=== PATIENT | female | born 1935 | race Caucasian/White ===

== ENCOUNTER 2019-03-16 16:10 | Emergency (ER) | payer MEDICARE, OTHER ==
[2019-03-16] MEDS ORDERED: ONDANSETRON HCL IV 4 MG/2 ML VIAL IV ONE (16:16)
[2019-03-16] MEDS ORDERED: 0.9 % SODIUM CHLORIDE 1,000 ML BAG IV ONE ×2 (16:16→17:15)
--- NOTE | 2019-03-16 16:22 | Emergency Department Record ---
History of Present Illness - General Chief complaint: Nausea, Vomiting, Diarrhea Stated complaint: N/V Time Seen by Provider: 03/16/19 16:11 Source: Patient Mode of Arrival: Ambulatory Limitations: No limitations - History of Present Illness Initial comments: The patient is here due to a 15 hour hx of frequent nausea, vomiting and then loose watery stools. She did develop some crampy abdominal pain after the vomiting. There has been no fever, chills, blood in the stool or vomit, Cp, SOB, or back pain. The patient has had no recent travel and has not been on any antibiotics. Her only abdominal surgery is a gallbladder removal. MD complaint: Diarrhea, Nausea, Vomiting Onset/Timin -: Hour(s) - Related Data Previous Rx's Medication Instructions Recorded Ondansetron [Zofran Odt] 4 mg SL .Q4-6H PRN #12 tab.rapdis 03/16/19 Allergies Allergy/AdvReac Type Severity Reaction Status Date / Time codeine Allergy HYPERSENSIT Verified 03/16/19 16:23 IVITY Review of Systems Constitutional: Denies: Chills, Fever Eyes: Denies: Eye discharge ENT: Denies: Congestion Respiratory: Denies: Cough, Dyspnea Cardiovascular: Denies: Arrhythmia, Chest pain Endocrine: Denies: Fatigue Gastrointestinal: Reports: Abdominal pain, Diarrhea, Nausea, Vomiting Genitourinary: Denies: Dysuria Musculoskeletal: Denies: Arthralgia Skin: Denies: Bruising Past Medical History - SOCIAL HISTORY Smoking Status: Never smoker Alcohol Use: None Drug Use: None - RESPIRATORY Hx Respiratory Disorders: No - CARDIOVASCULAR Hx Cardio Disorders: No - GI Hx GI Disorders: No Physical Exam - General General Appearance: Alert, Oriented x3, Cooperative, No acute distress - Head Head exam: Atraumatic, Normocephalic, Normal inspection - Eye Eye exam: Normal appearance, PERRL - ENT Throat exam: Normal inspection. negative: Tonsillar erythema, Tonsillar exudate - Neck Neck exam: Normal inspection, Full ROM. negative: Tenderness - Respiratory Respiratory exam: Normal lung sounds bilaterally. negative: Respiratory distress - Cardiovascular Cardiovascular Exam: Regular rate, Normal rhythm, Normal heart sounds - GI/Abdominal GI/Abdominal exam: Soft, Normal bowel sounds. negative: Rebound, Rigid, Tenderness - Extremities Extremities exam: Normal inspection, Full ROM, Normal capillary refill. negative: Tenderness - Neurological Neurological exam: Alert, Normal gait. negative: Abnormal gait, Motor sensory deficit - Psychiatric Psychiatric exam: negative: Anxious Course - Reevaluation(s) Reevaluation #1: The patient is doing better at this time. She denies any significant pain or nausea but has mild tenderness on exam over the mid abdomen. Because of that new finding we will order an abdominal CT. 03/16/19 17:15 Reevaluation #2: The patient is doing very well at this time and denies any AP, nausea or vomiting. On exam her abdomen is very soft with no tenderness on palpation. The patient's repeat temp is 98.4 orally. I do feel the patient most likely has a viral enteritis or possibly food poisoning. Since she is doing so much better we will discharge the patient with Zofran ODT's and will have her return for any worsening symptoms. 03/16/19 18:38 Medical Decision Making - Data Complexity MDM Data: Labs Ordered and/or Reviewed, X-Ray Ordered and/or Reviewed - Lab Data Result diagrams: 03/16/19 16:30 03/16/19 16:30 - Radiology Data Radiology results: Report reviewed (Abd CT: Thickening and possible inflammation distal and terminal ileum consistent with enteritis.) Disposition Disposition: Discharge Clinical Impression: Enteritis Disposition: Home, Self-Care Condition: (2) Stable Instructions: Acute Nausea and Vomiting (ED) Additional Instructions: Please drink clear liquids for 6 hours then slowly advance your diet. Use the Zofran for nausea if needed. Please return to the ER for any worsening symptoms, pain, fever, or blood in the stool. Prescriptions: Ondansetron [Zofran Odt] 4 mg SL .Q4-6H PRN #12 tab.rapdis PRN Reason: Nausea Forms: Patient Portal Access Time of Disposition: 18:43 Quality - Quality Measures Quality Measures: N/A - Blood Pressure Screening View Details: Yes Does Patient Have Any of the Following: No Blood Pressure Classification: Pre-Hypertensive BP Reading Systolic Measurement: 158 Diastolic Measurement: 81 Screening for High Blood Pressure: < Pre-Hypertensive BP, F/U Documented > [G8950] Pre-Hypertensive Follow-up Interventions: Referral to alternative/primary care provider.
[2019-03-16 16:42] LABS: ABSOLUTE NEUTROPHIL COUNT 6.26; HEMATOCRIT 46.4 % (35.0-47.0); HEMOGLOBIN 15.5 gm/dl (11.6-16.0); MEAN CELL VOLUME 91.5 fl (81-97); MEAN CORPUSCULAR HEMOGLOBIN 30.6 pg (27-33); MEAN CORPUSCULAR HGB CONC 33.4 g/dl (32-36); MEAN PLATELET VOLUME 10.7 fl (7.4-10.4); PLATELET COUNT 228 K/uL (130-400); RED BLOOD COUNT 5.07 M/uL (3.80-5.40); RED CELL DISTRIBUTION WIDTH 12.5 % (11.5-14.5); WHITE BLOOD COUNT W/O DIFF 7.2 K/uL (4.2-12.2)
[2019-03-16 16:52] LABS: PLATELET ESTIMATE NORMAL (NORMAL)
[2019-03-16 16:55] LABS: BLOOD UREA NITROGEN 15 mg/dL (8-23); CREATININE 0.6 mg/dL (0.5-0.9); EST GLOMERULAR FILTRATION RATE > 60 mL/min
[2019-03-16 16:56] LABS: LIPASE 39 U/L (13-60)
[2019-03-16 16:58] LABS: GLUCOSE,RANDOM 121 mg/dL (74-109)
[2019-03-16 17:01] LABS: ALBUMIN 4.5 g/dL (4.0-5.0); ALKALINE PHOSPHATASE 70 U/L (35-104); ALT/SGPT 13 U/L (<33); AST/SGOT 20 U/L (10.0-35.0); BILIRUBIN,DIRECT < 0.2 mg/dL (0-0.3)
[2019-03-16 18:23] LABS: URINE APPEARANCE CLEAR; URINE BILIRUBIN NEGATIVE (NEGATIVE); URINE BLOOD TRACE-I (NEGATIVE); URINE COLOR YELLOW; URINE GLUCOSE (UA) NEGATIVE (NEGATIVE); URINE KETONE 40 mg/dL (NEGATIVE); URINE LEUKOCYTE ESTERASE NEGATIVE (NEGATIVE); URINE PROTEIN NEGATIVE (NEGATIVE); URINE UROBILINOGEN 0.2 E.U./dL (0.20 - 1.00)
[2019-03-16 18:30] LABS: URINE NITRITE NEGATIVE (NEGATIVE)
[2019-03-16 18:31] LABS: URINE BACTERIA NONE SEEN; URINE RBC 0 - 2 (NONE SEEN); URINE WBC NONE SEEN (0-2/hpf)
--- NOTE | 2019-03-17 22:33 | CT SCAN REPORT ---
EXAM: CT SCAN ABDOMEN/PELVIS W CONTRAST HISTORY: NAUSEA, VOMITING, AND DIARRHEA. TECHNIQUE: Helical CT scan of the abdomen and pelvis obtained after the administration of intravenous contrast, the type and amount specified in the patient's medical record. COMPARISON: None. FINDINGS: Lung bases are clear. ABDOMEN: Liver, spleen, pancreas, adrenal glands, and kidneys are within normal limits. Gallbladder is absent. Common bile duct is mildly dilated, 10 mm proximally, tapering distally, likely on the basis of prior cholecystectomy. Minimal intrahepatic biliary ductal dilation. No hydronephrosis. Bowel has normal caliber. There is slight thickening of the distal end terminal ileum. There is slight haziness of the small bowel mesentery. Appendix is normal. A few colonic sigmoid diverticula are present, no acute inflammatory changes. Abdominal aorta has severe calcifications, no aneurysm. 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 Superior and inferior mesenteric arteries have no significant origin stenosis. No ascites or extraluminal gas. No fluid collections. Bony structures show mild degenerative change at L4-L5. IMPRESSION: MILD ABNORMALITY OF THE DISTAL END TERMINAL ILEUM, LIKELY AN INFECTIOUS ENTERITIS. INFLAMMATORY ENTERITIS CAN BE CONSIDERED, IF PATIENT'S SYMPTOMS PERSIST. JOB NUMBER: [id number] [facility]
== END 2019-03-16 18:55 | disposition home or self-care (01) ==
LOC: ER 16:10
DX: K52.9 Noninfective gastroenteritis and colitis, unspecified (principal); R11.2 Nausea with vomiting, unspecified
CPT/HCPCS: 74177; 80048; 80076; 81001; 83690; 85027; 89055; 96361; 96374; 99284; J2405; J7030